=== PATIENT | male | born 1960 | race Caucasian/White ===

== ENCOUNTER 2017-02-12 14:17 | Emergency (ER) | payer MEDICARE ==
[~2017-02-12] VITALS: Ht 177.8 cm; Wt 149.7 kg
[~2017-02-12 14:17] MED LIST: AMOXICILLIN500 MG PO; ASPIR-TRIN325 MG PO; BUMEX1 MG PO; CARVEDILOL6.25 MG PO; CIPROFLOXACIN500 MG PO; CLINDAMYCIN HC300 MG PO; COREG12.5 MG PO; DICLOXACILLIN250 M1 PO; DICLOXACILLIN250 MG PO; FERROUS SULFATE65 MG PO; LANTUS100 U/ML SC; MEDROL DOSEPAK4 MG PO; MULTIVITAMIN1 TA1 PO; PERCOCET 325 MG1 TA7 PO; PREDNISONE10 MG PO; VIBRAMYCIN100 MG PO; VITAMIN D50000 I2 PO; ZOCOR20 MG PO; ZOFRAN ODT4 MG SL
[2017-02-12 15:01] LABS: BASO % 0.5 % (0.0-1.0); EOS # 0.2 10*3/uL (0.0-0.4); EOS % 3.5 % (1.0-4.0); HEMATOCRIT 36.4 % (42.0-52.0); HEMOGLOBIN 10.8 g/dl (14.0-18.0); LYMPH # 0.8 10*3/uL (1.3-4.4); LYMPH % 13.6 % (27.0-41.0); MEAN CELL VOLUME 82.2 fl (80.0-94.0); MEAN CORPUSCULAR HGB 24.4 pg (27.0-31.0); MEAN CORPUSCULAR HGB CONC 29.7 g/dl (33.0-37.0); MEAN PLATELET VOLUME 10.1 fl (9.6-12.3); MONO # 0.3 10*3/uL (0.1-1.0); MONO % 5.8 % (3.0-9.0); NEUT # 4.3 10*3/uL (2.3-7.9); NEUT % 76.1 % (47.0-73.0); PLATELET COUNT AUTOMATED 139 10*3/uL (130-400); RED BLOOD COUNT 4.43 10*6/uL (4.50-5.90); RED CELL DISTRI WIDTH 15.5 % (0-14.5); WHITE BLOOD COUNT 5.7 10*3/uL (4.8-10.8)
[2017-02-12 15:20] LABS: ALBUMIN 3.6 gm/dl (3.1-4.5); BILIRUBIN, TOTAL 0.4 mg/dl (0.2-1.0); POTASSIUM 4.4 mmol/L (3.5-5.1)
== END 2017-02-12 16:31 | disposition short-term general hospital (02) ==
LOC: ED 14:17
PROVIDERS: Registered Nurse
DX: S81.812A Laceration without foreign body, left lower leg, initial encounter (principal); E11.9 Type 2 diabetes mellitus without complications; Z93.0 Tracheostomy status; Z98.84 Bariatric surgery status; Z88.8 Allergy status to other drugs, medicaments and biological substances; Z79.899 Other long term (current) drug therapy; W22.8XXA Striking against or struck by other objects, initial encounter; Y93.89 Activity, other specified; Y92.89 Other specified places as the place of occurrence of the external cause; Y99.8 Other external cause status

== ENCOUNTER → 2017-12-31 | Outpatient (CLI) | payer MEDICARE ==
[2017-12-31 08:55] LABS: BILIRUBIN NEGATIVE (NEGATIVE); BLOOD 1+ (NEGATIVE); CLARITY CLEAR (CLEAR); COLOR YELLOW (YELLOW); GLUCOSE NEGATIVE (NEGATIVE); KETONE NEGATIVE (NEGATIVE); LEUKO ESTERASE NEGATIVE (NEGATIVE); NITRITE NEGATIVE (NEGATIVE); PH 5.5 (5.0-9.0); SPECIFIC GRAVITY 1.025 (1.005-1.030); UROBILINOGEN 0.2 E.U./dl (0.2-1.0)
[2017-12-31 08:58] LABS: HEMATOCRIT 38.7 % (42.0-52.0); HEMOGLOBIN 12.5 g/dl (14.0-18.0)
[2017-12-31 09:08] LABS: MUCOUS 1+
[2017-12-31 09:25] LABS: CREATININE 1.76 mg/dL (0.70-1.30); PHOSPHOROUS 4.4 mg/dL (2.5-4.9); POTASSIUM 4.4 mmol/L (3.5-5.1)
[2017-12-31 10:13] LABS: PTH INTACT 146.8 pg/mL (14.0-72.0)
[2017-12-31 10:14] LABS: VITAMIN D, 25-HYDROXY 52.6 ng/mL (30-100)
[2018-01-02 20:11] LABS: RENIN ACTIVITY (PLASMA) 0.205 ng/mL/hr (0.167-5.380)
== END | disposition home or self-care (01) ==
LOC: LAB 07:59
PROVIDERS: Internal Medicine Nephrology
DX: I10 Essential (primary) hypertension (principal); E55.9 Vitamin D deficiency, unspecified

== ENCOUNTER → 2018-01-15 | Outpatient (CLI) | payer MEDICARE ==
[2018-01-15 11:02] LABS: ALBUMIN 3.4 gm/dl (3.1-4.5); CREATININE 1.73 mg/dL (0.70-1.30); POTASSIUM 4.5 mmol/L (3.5-5.1)
[2018-01-16 06:10] LABS: HEPATITIS B SURFACE AG Negative (Negative)
[2018-01-16 08:11] LABS: COMPLEMENT C4 001834 30 mg/dL (14-44); IMMUNOGLOBULIN G, QNT 610 mg/dL (700-1600); RHEUMATOID ARTHRITIS FACTOR <10.0 IU/mL (0.0-13.9)
[2018-01-16 14:06] LABS: ATYPICAL PANCA <1:20 titer (Neg:<1:20); CYTOPLASMIC (C-ANCA) <1:20 titer (Neg:<1:20)
[2018-01-16 16:10] LABS: A/G RATIO 1.4 (0.7-1.7); ALBUMIN 3.5 g/dL (2.9-4.4); ALPHA-1-GLOBULIN 0.2 g/dL (0.0-0.4); ALPHA-2-GLOBULIN 0.7 g/dL (0.4-1.0); GAMMA GLOBULIN 0.6 g/dL (0.4-1.8); GLOBULIN, TOTAL 2.5 g/dL (2.2-3.9); M-SPIKE Not Observed g/dL (Not Observed)
[2018-01-19 16:09] LABS: ALBUMIN, URINE RANDOM 80.7 % (.); ALPHA-1-GLOBULIN, URINE 0.7 % (.); ALPHA-2-GLOBULIN, URINE 3.2 % (.); GAMMA GLOBULIN, URINE 5.7 % (.); M-SPIKE % Not Observed % (Not Observed); PROTEIN,TOTAL - URINE RANDOM 254.3 mg/dL (Not Estab.)
== END | disposition home or self-care (01) ==
LOC: LAB 10:04
PROVIDERS: Internal Medicine Nephrology
DX: N18.3 Chronic kidney disease, stage 3 (moderate) (principal)

== ENCOUNTER → 2018-05-20 | Outpatient (CLI) | payer MEDICARE ==
[2018-05-20 09:01] LABS: BILIRUBIN NEGATIVE (NEGATIVE); BLOOD 1+ (NEGATIVE); CLARITY SL CLOUDY (CLEAR); COLOR YELLOW (YELLOW); GLUCOSE NEGATIVE (NEGATIVE); KETONE NEGATIVE (NEGATIVE); LEUKO ESTERASE NEGATIVE (NEGATIVE); NITRITE NEGATIVE (NEGATIVE); PH 5.5 (5.0-9.0); SPECIFIC GRAVITY 1.025 (1.005-1.030); UROBILINOGEN 0.2 E.U./dl (0.2-1.0)
[2018-05-20 09:04] LABS: BASO % 0.5 % (0.0-1.0); EOS # 0.2 10*3/uL (0.0-0.4); EOS % 2.8 % (1.0-4.0); HEMATOCRIT 36.8 % (42.0-52.0); HEMOGLOBIN 11.5 g/dl (14.0-18.0); LYMPH # 0.6 10*3/uL (1.3-4.4); LYMPH % 7.4 % (27.0-41.0); MEAN CELL VOLUME 94.1 fl (80.0-94.0); MEAN CORPUSCULAR HGB 29.4 pg (27.0-31.0); MEAN CORPUSCULAR HGB CONC 31.3 g/dl (33.0-37.0); MEAN PLATELET VOLUME 9.9 fl (9.6-12.3); MONO # 0.6 10*3/uL (0.1-1.0); MONO % 7.2 % (3.0-9.0); NEUT # 6.5 10*3/uL (2.3-7.9); NEUT % 81.5 % (47.0-73.0); PLATELET COUNT AUTOMATED 128 10*3/uL (130-400); RED BLOOD COUNT 3.91 10*6/uL (4.50-5.90); RED CELL DISTRI WIDTH 13.6 % (0-14.5)
[2018-05-20 09:19] LABS: CREATININE 1.61 mg/dL (0.70-1.30); POTASSIUM 5.2 mmol/L (3.5-5.1)
[2018-05-21 11:04] LABS: CREATININE,URINE 90.3 mg/dL (Not Estab.); MICRO ALBUMIN/CRE RATIO 1812.7 (0.0-30.0)
== END | disposition home or self-care (01) ==
LOC: LAB 08:36
PROVIDERS: Internal Medicine Nephrology
DX: Z12.5 Encounter for screening for malignant neoplasm of prostate (principal); I12.9 Hypertensive chronic kidney disease with stage 1 through stage 4 chronic kidney disease, or unspecified chronic kidney disease; N18.4 Chronic kidney disease, stage 4 (severe)

== ENCOUNTER 2022-12-24 20:37 | Emergency (ER) | payer MEDICARE ==
[~2022-12-24] VITALS: Ht 177.8 cm; Wt 152.9 kg
== END 2022-12-24 23:37 ==
LOC: ED 20:37
DX: I46.9 Cardiac arrest, cause unspecified (principal); I11.0 Hypertensive heart disease with heart failure; I50.9 Heart failure, unspecified; J44.9 Chronic obstructive pulmonary disease, unspecified; N19 Unspecified kidney failure; Z88.8 Allergy status to other drugs, medicaments and biological substances; Z98.890 Other specified postprocedural states